=== PATIENT | male | born 1970 | race Caucasian/White ===

== ENCOUNTER 2019-10-12 10:14 | Emergency (ER) | payer OTHER ==
[~2019-10-12] VITALS: Ht 167.6 cm; Wt 97.1 kg
[2019-10-12] MEDS ORDERED: ELIQUIS5 MG (10:34)
[2019-10-12] MEDS ORDERED: PROPAFENONE HC225 M1 (10:36)
[2019-10-12] MEDS ORDERED: FENOFIBRATE150 MG (10:37)
[2019-10-12] MEDS ORDERED: TOPROL XL25 M1 (10:38)
== END 2019-10-12 13:54 | disposition home or self-care (01) ==
LOC: ER 10:14
DX: N39.0 Urinary tract infection, site not specified (principal); R31.0 Gross hematuria; I48.0 Paroxysmal atrial fibrillation

== ENCOUNTER 2022-07-23 06:57 | Inpatient (IN) | payer OTHER ==
[~2022-07-23] VITALS: Ht 170.2 cm; Wt 95.3 kg
[~2022-07-23 06:57] MED LIST: ELIQUIS5 MG; FENOFIBRATE150 MG; PROPAFENONE HC225 M1; TOPROL XL25 M1 PO
[2022-07-23] MEDS ORDERED: LANOXIN125 MCG PO (14:36)
[2022-07-26] MEDS ORDERED: PANTOPRAZOLE SO40 MG (13:56)
[2022-07-27] MEDS ORDERED: PROTONIX40 MG PO (08:30)
[2022-07-27] MEDS ORDERED: TRAM1TAB98 PO (08:32)
== END 2022-07-27 15:38 | disposition home or self-care (01) | DRG 330 ==
LOC: O/R 07-26 06:54 → SURH 07-26 11:15 → SURG 07-26 14:51
PROVIDERS: ADMIT Surgery; ATTEND Surgery
PROC: 0DBH4ZZ Excision of Cecum, Percutaneous Endoscopic Approach (ICD-10-PCS; principal; 2022-07-26 12:25)
DX: D12.1 Benign neoplasm of appendix (principal); N39.0 Urinary tract infection, site not specified; I48.91 Unspecified atrial fibrillation; Z20.822 Contact with and (suspected) exposure to COVID-19